=== PATIENT | male | born 1955 | race Caucasian/White ===

== ENCOUNTER → 2018-01-17 14:07 | Outpatient (CLI) | payer OTHER, SELFPAY ==
--- NOTE | 2018-01-17 14:11 | DI.RAD.S_ITS ---
PROCEDURE: XR SHOULDER RT MIN 2V INDICATIONS: right shoulder pain TECHNIQUE: 3 views of the shoulder were acquired. COMPARISON: None. FINDINGS: Bones: No fractures or dislocations. No suspicious bony lesions. Visualized ribs appear intact. There is moderate to severe acromioclavicular joint degeneration. Lucency seen humeral head are seen. Soft tissues: No suspicious soft tissue calcifications. IMPRESSION: 1. Moderate acromioclavicular joint degeneration. 2. Small lucencies in the humeral head may be bone cysts. If there is history or clinical concern of cancer, a whole-body bone scan is suggested for followup. Dictated by: Brayan Robledo M.D. on 01/17/2018 at 17:24 Approved by: Brayan Robledo M.D. on 01/18/2018 at 9:50
== END ==
PROVIDERS: PCP Family Medicine; Visit Provider Family Medicine
DX: M25.511 Pain in right shoulder (principal); M19.011 Primary osteoarthritis, right shoulder
CPT/HCPCS: 73030

== ENCOUNTER → 2019-05-05 08:46 | Outpatient (CLI) | payer OTHER, SELFPAY ==
[2019-05-05 10:31] LABS: Add Manual Diff / Slide Review NO; Basophils Absolute Auto 0 /uL (0-100); Basophils Percent Auto 0.5 % (0-2); Eosinophils Absolute Auto 200 /uL (0-450); Eosinophils Percent Auto 2.3 % (2-4); Hematocrit 46.8 % (41-53); Hemoglobin 15.9 g/dL (13.5-17.5); Lymphocytes Absolute Auto 2700 /uL (1100-4500); Lymphocytes Percent Auto 38.7 % (25-40); Mean Corpuscular HGB Conc 33.9 % (30-36); Mean Corpuscular Hemoglobin 30.9 PG (26-34); Monocytes Absolute Auto 500 /uL (0-900); Monocytes Percent Auto 7.3 % (3-14); Neutrophils Absolute Auto 3600 /uL (1500-7000); Neutrophils Percent Auto 51.2 % (50-75); Platelet Count 175 X10^3/uL (150-400); Red Blood Cell Count 5.14 X10^6/uL (4.5-5.9); Red Cell Distribution Width 13.1 % (11.6-14.8)
[2019-05-05 10:39] LABS: Blood Urea Nitrogen 23 mg/dL (9-20)
== END ==
PROVIDERS: PCP Family Medicine; Visit Provider Orthopaedic Surgery
DX: Z01.812 Encounter for preprocedural laboratory examination (principal); R79.89 Other specified abnormal findings of blood chemistry
CPT/HCPCS: 36415; 84520; 85025; 93005

== ENCOUNTER → 2019-10-06 16:54 | Outpatient (CLI) | payer OTHER, SELFPAY ==
--- NOTE | 2019-10-06 16:57 | DI.US.S_ITS ---
PROCEDURE: US SCROTUM INDICATIONS: TESTICULAR PAIN TECHNIQUE: Real-time scanning was performed of the scrotum and testicles, with image documentation. Color and pulse Doppler interrogation was performed of both testicles. COMPARISON: None. FINDINGS: Right: Testicle is normal in size at 4.5 x 2.5 x 2.9 cm, and homogenous in echotexture. Epididymis is normal in overall size. A 1.8 cm right epididymal cyst can be seen. There is a small to moderate right-sided hydrocele. Overlying scrotal skin is normal in thickness. Left: Testicle is normal in size at 4.1 x 2.4 x 3.1 cm, and homogeneous in echotexture. Epididymis is normal in overall size and morphology. There is a small left-sided hydrocele. Overlying scrotal skin is normal in thickness. Doppler: Color and pulse Doppler demonstrate normal and symmetric arterial flow in both testicles. No varicoceles are seen. IMPRESSION: Normal appearing testicles, without masses. There is normal, symmetric testicular vascularity. There is a 1.8 cm right epididymal cyst seen. Bilateral hydroceles are seen, right worse than left. Negative for varicocele. Dictated by: Janak Mc M.D. on 10/07/2019 at 9:54 Approved by: Janak Mc M.D. on 10/07/2019 at 9:56
== END ==
PROVIDERS: PCP Family Medicine; Referring Provider Family Medicine; Visit Provider Family Medicine
DX: N50.819 Testicular pain, unspecified (principal); N50.3 Cyst of epididymis; N43.3 Hydrocele, unspecified
CPT/HCPCS: 76870

== ENCOUNTER → 2020-01-22 08:38 | Outpatient (CLI) | payer OTHER, SELFPAY ==
[2020-01-22 09:43] LABS: Add Manual Diff / Slide Review NO; Basophils Absolute Auto 0 /uL (0-100); Basophils Percent Auto 0.6 % (0-2); Eosinophils Absolute Auto 100 /uL (0-450); Eosinophils Percent Auto 1.8 % (2-4); Hematocrit 43.1 % (41-53); Hemoglobin 14.5 g/dL (13.5-17.5); Lymphocytes Absolute Auto 2000 /uL (1100-4500); Lymphocytes Percent Auto 32.6 % (25-40); Mean Corpuscular HGB Conc 33.7 % (30-36); Mean Corpuscular Hemoglobin 29.9 PG (26-34); Mean Corpuscular Volume 88.9 fL (80-100); Monocytes Absolute Auto 400 /uL (0-900); Monocytes Percent Auto 5.9 % (3-14); Neutrophils Absolute Auto 3600 /uL (1500-7000); Neutrophils Percent Auto 59.1 % (50-75); Platelet Count 168 X10^3/uL (150-400); Red Blood Cell Count 4.85 X10^6/uL (4.5-5.9); Red Cell Distribution Width 13.6 % (11.6-14.8); White Blood Cell Count 6.1 X10^3/uL (4.5-11.0)
[2020-01-22 09:53] LABS: Hemoglobin A1C% w Est Avg Glu 9.4 % (4.0-6.0)
[2020-01-22 10:14] LABS: Alanine Aminotransferase 35 IU/L (<50); Albumin 4.2 g/dL (3.5-5.0); Albumin Globulin Ratio 1.7 (1.0-2.8); Alkaline Phosphatase 53 U/L (38-126); Aspartate Aminotransferase 30 IU/L (17-59); BUN Creatinine Ratio 25.5 (6-22); Bilirubin Total 0.6 mg/dL (0.2-1.3); Blood Urea Nitrogen 26 mg/dL (9-20); Calcium 9.7 mg/dL (8.4-10.2); Carbon Dioxide 26 mmol/L (22-32); Chloride 103 mmol/L (98-107); Cholesterol 132 mg/dL (140-199); Estimated Glomerular Filt Rate > 60.0 mL/min (>60); Globulin 2.5 g/dL (1.7-4.1); Glucose 241 mg/dL (80-110); HDL Cholesterol 20 mg/dL (40-60); Potassium 4.9 mmol/L (3.4-5.1); Sodium 139 mmol/L (137-145); Total Protein 6.7 g/dL (6.3-8.2)
[2020-01-22 10:21] LABS: HEMOLYSIS < 15 (0-50)
[2020-01-22 10:24] LABS: Triglycerides 642 mg/dL (35-150)
[2020-01-22 10:50] LABS: Thyroid Stimulating Hormone 1.85 uIU/mL (0.47-4.68)
[2020-01-22 10:56] LABS: Creatinine Urine Random 250.2 mg/dL
[2020-01-22 11:00] LABS: Microalbumi Creatinin Ratio Ur 8.3 ug/mg CR (<30); Microalbumin Urine Random 2.1 mg/dL (0-1.6)
== END ==
PROVIDERS: PCP Family Medicine; Referring Provider Family Medicine; Visit Provider Family Medicine
DX: E11.9 Type 2 diabetes mellitus without complications (principal)
CPT/HCPCS: 36415; 80053; 80061; 82043; 82570; 83036; 84153; 84443; 85025

== ENCOUNTER → 2020-03-26 06:51 | Outpatient (CLI) | payer OTHER, SELFPAY ==
[2020-03-26 07:42] LABS: BUN Creatinine Ratio 27.4 (6-22); Blood Urea Nitrogen 29 mg/dL (9-20); Calcium 9.9 mg/dL (8.4-10.2); Carbon Dioxide 28 mmol/L (22-32); Chloride 102 mmol/L (98-107); Estimated Glomerular Filt Rate > 60.0 mL/min (>60); Glucose 214 mg/dL (80-110); HEMOLYSIS < 15 (0-50); Potassium 4.7 mmol/L (3.4-5.1); Sodium 137 mmol/L (137-145)
== END ==
PROVIDERS: PCP Family Medicine; Referring Provider Family Medicine; Visit Provider Family Medicine
DX: E11.9 Type 2 diabetes mellitus without complications (principal)
CPT/HCPCS: 36415; 80048; 83036

== ENCOUNTER → 2022-03-01 09:20 | Outpatient (CLI) | payer MEDICARE, OTHER, SELFPAY ==
[2022-03-01 09:49] LABS: Add Manual Diff / Slide Review NO; Basophils Absolute Auto 0 /uL (0-100); Basophils Percent Auto 0.6 % (0-2); Eosinophils Absolute Auto 100 /uL (0-450); Hematocrit 44.7 % (41-53); Hemoglobin 15.2 g/dL (13.5-17.5); Lymphocytes Absolute Auto 2400 /uL (1100-4500); Lymphocytes Percent Auto 36.6 % (25-40); Mean Corpuscular HGB Conc 34.1 % (30-36); Mean Corpuscular Hemoglobin 29.9 PG (26-34); Mean Corpuscular Volume 87.9 fL (80-100); Monocytes Absolute Auto 500 /uL (0-900); Neutrophils Absolute Auto 3600 /uL (1500-7000); Neutrophils Percent Auto 53.8 % (50-75); Platelet Count 152 X10^3/uL (150-400); Red Blood Cell Count 5.08 X10^6/uL (4.5-5.9); Red Cell Distribution Width 13.9 % (11.6-14.8); White Blood Cell Count 6.6 X10^3/uL (4.5-11.0)
[2022-03-01 09:51] LABS: Hemoglobin A1C% w Est Avg Glu 6.8 % (4.0-6.0)
[2022-03-01 09:59] LABS: Alanine Aminotransferase 38 IU/L (<50); Albumin 4.7 g/dL (3.5-5.0); Albumin Globulin Ratio 1.6 (1.0-2.8); Alkaline Phosphatase 39 U/L (38-126); Aspartate Aminotransferase 32 IU/L (17-59); BUN Creatinine Ratio 25.2 (6-22); Bilirubin Total 0.5 mg/dL (0.2-1.3); Blood Urea Nitrogen 34 mg/dL (9-20); Calcium 9.5 mg/dL (8.4-10.2); Carbon Dioxide 24 mmol/L (22-32); Chloride 105 mmol/L (98-107); Cholesterol 164 mg/dL (140-199); Estimated Glomerular Filt Rate 58 mL/min (>60); Globulin 2.9 g/dL (1.7-4.1); Glucose 133 mg/dL (80-110); HDL Cholesterol 30 mg/dL (40-60); HEMOLYSIS < 15 (0-50); LDL Cholesterol Calculated 100 mg/dL (<100); Potassium 5.1 mmol/L (3.4-5.1); Sodium 140 mmol/L (137-145); Total Protein 7.6 g/dL (6.3-8.2); Triglycerides 171 mg/dL (35-150)
[2022-03-01 10:28] LABS: Prostate Specific Antigen Scrn 2.13 ng/mL (0.1-4.0)
[2022-03-01 10:52] LABS: Creatinine Urine Random 186.3 mg/dL
[2022-03-01 10:57] LABS: Microalbumi Creatinin Ratio Ur 6.4 ug/mg CR (<30); Microalbumin Urine Random 1.2 mg/dL (0-1.6)
[2022-03-02 16:34] LABS: Hep C Virus Ab w/Reflex Quant NEGATIVE s/c (NEGATIVE)
== END ==
PROVIDERS: PCP Student in an Organized Health Care Education/Training Program; Referring Provider Student in an Organized Health Care Education/Training Program; Visit Provider Student in an Organized Health Care Education/Training Program
DX: E11.69 Type 2 diabetes mellitus with other specified complication (principal); E66.01 Morbid (severe) obesity due to excess calories; Z12.5 Encounter for screening for malignant neoplasm of prostate; E11.9 Type 2 diabetes mellitus without complications; E78.1 Pure hyperglyceridemia; E78.5 Hyperlipidemia, unspecified; I10 Essential (primary) hypertension; Z11.59 Encounter for screening for other viral diseases
CPT/HCPCS: 36415; 80053; 80061; 82043; 82570; 83036; 85025; 86803; G0103

== ENCOUNTER → 2022-03-09 11:38 | Outpatient (CLI) | payer MEDICARE, OTHER, SELFPAY ==
--- NOTE | 2022-03-09 | DI.CT.S_ITS ---
PROCEDURE: CT CHEST WO CON INDICATIONS: Nicotine dependence; AAA screening TECHNIQUE: Noncontrast 5 mm thick sections acquired from the pulmonary apices to the posterior costophrenic angles. 1 mm lung window, 5 mm thick coronal and sagittal and 7 mm axial MIP reformats were then acquired. For radiation dose reduction, the following was used: automated exposure control, adjustment of mA and/or kV according to patient size. COMPARISON: None. FINDINGS: Image quality: Excellent. Lungs and pleura: 4 mm perihilar solid nodule in the right lower lobe, 3/166. No other suspicious lung nodules or masses. No acute air space opacities. No pleural effusions or pneumothorax. Central and peripheral airways are patent and normal in caliber. Mediastinum: Heart size is normal. Mild coronary artery calcification. No pericardial effusion. No mediastinal adenopathy by size criteria. Thoracic aorta and central pulmonary arteries are normal in size. Esophagus is normal in caliber. No hiatal hernia. Bones and chest wall: Mild gynecomastia. No suspicious bony lesions. Bridging osteophytosis in the midthoracic spine. No vertebral body compression fractures. No axillary or supraclavicular adenopathy by size criteria. Thyroid gland is partially imaged in the imaged portion appears normal. . Abdomen: The gallbladder is surgically absent. The liver is mildly enlarged and moderately hypodense. Upper abdominal organs are otherwise normal as visualized. IMPRESSION: 1. No suspicious lung nodules. 4 mm solid nodule in the perihilar region is probably benign. Recommend annual low-dose chest CT screening of the patient meets established criteria. 2. Hepatomegaly and moderate hepatic steatosis. Dictated by: Marian Flower M.D. on 03/09/2022 at 16:00 Approved by: Marian Flower M.D. on 03/09/2022 at 16:05
--- NOTE | 2022-03-09 | DI.US.S_ITS ---
PROCEDURE: US ABD AORTA ANEURYSM SCREEN INDICATIONS: Nicotine dependence; AAA screening TECHNIQUE: Real time scanning was performed of the aorta and iliac arteries, with image documentation. COMPARISON: None. FINDINGS: Aorta: The proximal aorta is not seen. Mid-aorta measures 2 cm. Distal aortic diameter is 1.6 cm. Iliac arteries: Right common iliac artery measures 1.3 cm. Left common iliac artery measures 1.2 cm. This study is limited by body habitus. This study is further limited by abdominal wall mesh. IMPRESSION: Negative for aneurysm. Limited study, without visualization of the proximal aorta. Dictated by: Janak Mc M.D. on 03/09/2022 at 13:04 Approved by: Janak Mc M.D. on 03/09/2022 at 13:05
== END ==
PROVIDERS: PCP Student in an Organized Health Care Education/Training Program; Referring Provider Student in an Organized Health Care Education/Training Program; Visit Provider Student in an Organized Health Care Education/Training Program
DX: R91.1 Solitary pulmonary nodule; Z13.6 Encounter for screening for cardiovascular disorders; I25.10 Atherosclerotic heart disease of native coronary artery without angina pectoris; K76.0 Fatty (change of) liver, not elsewhere classified; N62 Hypertrophy of breast; F17.200 Nicotine dependence, unspecified, uncomplicated; Z90.49 Acquired absence of other specified parts of digestive tract
CPT/HCPCS: 71250; 76706

== ENCOUNTER 2022-07-12 18:49 | Emergency (ER) | payer MEDICARE, OTHER, SELFPAY ==
[2022-07-12 19:06] VITALS: BP 180/88; PULSE 62; RESP 20; TEMP 36.6; O2SAT 98; BMI 36.2
--- NOTE | 2022-07-12 19:20 | DI.CT.S_ITS ---
PROCEDURE: CT HEAD/BRAIN WO CON INDICATIONS: headache and HTN TECHNIQUE: Noncontrast 4.5 mm thick angled axial sections acquired from the foramen magnum to the vertex, with coronal and sagittal reformats. For radiation dose reduction, the following was used: automated exposure control, adjustment of mA and/or kV according to patient size. COMPARISON: None. FINDINGS: Image quality: Excellent. CSF spaces: Basal cisterns are patent. No extra-axial fluid collections. Ventricles are normal in size and shape. Brain: No midline shift. No intracranial masses or hemorrhage. Vaughan-white matter interface is normal. Skull and face: Calvarium and visualized facial bones are intact, without suspicious lesions. Sinuses: Visualized sinuses and mastoids are clear. IMPRESSION: 1. No acute intracranial process. Dictated by: Ana Raymond M.D. on 07/12/2022 at 19:43 Approved by: Ana Raymond M.D. on 07/12/2022 at 19:43
[2022-07-12 19:47] LABS: Add Manual Diff / Slide Review NO; Basophils Absolute Auto 100 /uL (0-100); Eosinophils Absolute Auto 100 /uL (0-450); Eosinophils Percent Auto 1.8 % (2-4); Hematocrit 43.1 % (41-53); Hemoglobin 14.7 g/dL (13.5-17.5); Lymphocytes Absolute Auto 3100 /uL (1100-4500); Lymphocytes Percent Auto 40.1 % (25-40); Mean Corpuscular HGB Conc 34.2 % (30-36); Mean Corpuscular Hemoglobin 30.3 PG (26-34); Mean Corpuscular Volume 88.8 fL (80-100); Monocytes Absolute Auto 500 /uL (0-900); Monocytes Percent Auto 6.3 % (3-14); Neutrophils Absolute Auto 3900 /uL (1500-7000); Neutrophils Percent Auto 50.8 % (50-75); Platelet Count 161 X10^3/uL (150-400); Red Blood Cell Count 4.85 X10^6/uL (4.5-5.9); Red Cell Distribution Width 13.8 % (11.6-14.8); White Blood Cell Count 7.7 X10^3/uL (4.5-11.0)
[2022-07-12 19:52] LABS: Alanine Aminotransferase 43 IU/L (<50); Albumin 4.5 g/dL (3.5-5.0); Albumin Globulin Ratio 1.7 (1.0-2.8); Alkaline Phosphatase 42 U/L (38-126); Aspartate Aminotransferase 33 IU/L (17-59); Bilirubin Total 0.5 mg/dL (0.2-1.3); Blood Urea Nitrogen 32 mg/dL (9-20); Calcium 9.3 mg/dL (8.4-10.2); Carbon Dioxide 25 mmol/L (22-32); Chloride 102 mmol/L (98-107); Creatine Kinase 186 U/L (55-170); Estimated Glomerular Filt Rate 56 mL/min (>60); Globulin 2.6 g/dL (1.7-4.1); Glucose 102 mg/dL (80-110); HEMOLYSIS < 15 (0-50); Lipase 111 U/L (23-300); Potassium 4.5 mmol/L (3.4-5.1); Sodium 137 mmol/L (137-145); Total Protein 7.1 g/dL (6.3-8.2)
[2022-07-12 19:55] VITALS: BP 152/78; RESP 18
[2022-07-12] MEDS: ACETAMINOPHEN 325 MG TABLET 975 MG PO (20:01)
[2022-07-12 20:02] VITALS: BP 147/88
[2022-07-12 20:02] LABS: Troponin I < 0.012 ng/mL (0.01-0.034)
[2022-07-12 20:07] LABS: CKMB % Relative Index 1.2 % (1.5-5.0); Creatine Kinase MB 2.29 ng/mL (<2.37)
[2022-07-12 20:30] VITALS: PULSE 69; O2SAT 98
[2022-07-12 20:31] VITALS: BP 151/79; PULSE 64; O2SAT 96
--- NOTE | 2022-07-12 20:53 | ED_ITS ---
HPI - Headache General Chief Complaint: Headache Stated Complaint: double vision, head feels like it will explode Time Seen by Provider: 07/12/22 20:37 Source: patient Mode of arrival: Ambulatory Limitations: no limitations History of Present Illness HPI Narrative: Patient is a 66-year-old male. Is a xvs-saboaoq-bathgirqa diabetic. Not on anticoagulation. Does have a history of hypertension was here for evaluation approximately 3 days of a headache. It was a fairly gradual onset of the headache 3 days ago but has been consistent since then gradually worsening. He states that earlier today the headache became much worse. He started to have some double vision and felt like he was off-balance. He was not having chest pain or palpitations no shortness of breath at the time. No numbness or tingling in his arms or legs. He stated that he did take his blood pressure today. He stated that this felt very similar to the time when he was diagnosed with diabetes but he took his blood sugar and it was less than 150. At the time of my evaluation the patient stated that his symptoms have now greatly improved. He does still have a small posterior headache but is no longer having any vision problems or balance issues. Blood pressure has improved without specific intervention here in the ER prior to my evaluation. Related Data Home Medications Medication Instructions Recorded Confirmed nortriptyline 50 mg capsule 50 mg PO BEDTIME 03/01/22 03/01/22 Previous Rx's Medication Instructions Recorded fenofibrate 160 mg tablet 160 mg PO DAILY #90 tabs 03/06/22 glyburide 5 mg tablet 5 mg PO BID #180 tabs 03/06/22 meloxicam 7.5 mg tablet 7.5 mg PO BID #180 tabs 03/06/22 lisinopril 20 mg tablet 20 mg PO BID #180 tabs 05/04/22 metformin 1,000 mg tablet 1,000 mg PO BIDWMEAL #180 tabs 05/04/22 metoprolol tartrate 100 mg tablet 100 mg PO BID #180 tabs 05/04/22 pioglitazone 30 mg tablet 30 mg PO DAILY #90 tabs 05/04/22 Allergies Allergy/AdvReac Type Severity Reaction Status Date / Time No Known Drug Allergies Allergy Verified 03/01/22 08:46 Review of Systems Review of Systems ROS Unobtainable: All systems reviewed & are unremarkable except as noted in HPI and below Patient History Medical History Colon polyp (~1999) Diabetes mellitus Hearing loss (~2011) Hydrocele, bilateral Kidney stones Shoulder pain (~2014) Surgical History (Updated 10/16/17 @ 11:01 by Maria C Romero) Anesthesia Hernia History of cholecystectomy History of neck surgery Family History (Updated 10/16/17 @ 10:56 by Maria C Romero) Father Stroke Mother Cancer Brother Colon cancer Social History Smoking Status: Current every day smoker Smoking Status: Current every day smoker tobacco type: cigarettes alcohol intake frequency: holidays/special occasions only Substance Use Type: marijuana Exam Initial Vital Signs Initial Vital Signs: Vital Signs Temperature 98 F 07/12/22 19:06 Pulse Rate 62 07/12/22 19:06 Respiratory Rate 20 07/12/22 19:06 Blood Pressure 180/88 H 07/12/22 19:06 Pulse Oximetry 98 07/12/22 19:06 Oxygen Delivery Method Room Air 07/12/22 19:06 Const General: cooperative, comfortable and No ill appearing HENMT Head: normal to inspection and normocephalic Face and sinus: normal facial exam Mouth: oral mucosae normal Eyes EOM: EOM intact bilaterally Resp Effort & Inspection: normal respiratory effort Auscultation: clear to auscultation bilaterally Cardio Rate: regular rate Rhythm: regular rhythm Skin General: no rashes or lesions noted Neuro General: patient alert, patient awake and moves all extremities Cranial Nerves: CN's II-XI intact bilaterally Cognition: normal cognition Speech: speech normal Extrem General: normal to inspection and capillary refill normal Psych Appearance: grossly normal and well kempt Scores GCS P[place]lette coma scale eye opening: Spontaneous [place] coma scale verbal response: Orientated [place] coma scale motor response: Obey commands P[place]lette coma scale total score: 15 Course Orders Ordered: ED Orders 07/12/22 19:20 CT head/brain wo con Stat EKG-12 Lead Stat 07/12/22 19:25 Complete Blood Count AUTO DIFF Stat Comprehensive Metabolic Panel Stat Lipase Stat Troponin & CK Cardiac Panel Stat Discontinued Medications Acetaminophen (Acetaminophen 325 Mg Tablet) 975 mg PO NOW ONE Stop: 07/12/22 19:13 Last Admin: 07/12/22 20:01 Dose: 975 mg Documented By: DAYAMI Ketorolac Tromethamine (Ketorolac 30 Mg/Ml Vial) 15 mg IM NOW ONE Stop: 07/12/22 19:13 Last Admin: 07/12/22 20:12 Dose: Not Given Documented By: AMARILYS Ondansetron HCl (Ondansetron 4 Mg Odt) 4 mg SL NOW ONE Stop: 07/12/22 19:13 Last Admin: 07/12/22 20:12 Dose: Not Given Documented By: AMARILYS Vital Signs Vital signs: Vital Signs - 8 hr 07/12/22 19:55 07/12/22 20:02 07/12/22 20:30 Pulse Rate 69 Respiratory Rate 18 Blood Pressure 152/78 H 147/88 H Pulse Oximetry 98 Oxygen Delivery Method 07/12/22 20:31 07/12/22 20:31 07/12/22 21:03 Pulse Rate 64 57 L Respiratory Rate Blood Pressure 151/79 H 151/79 H Pulse Oximetry 96 96 Oxygen Delivery Method Room Air MDM - Headache Lab Data Attestation: I reviewed the patient's lab results. 07/12/22 19:25 07/12/22 19:25 Labs: Lab Results 07/12/22 07/12/22 Range/Units 19:25 19:25 WBC 7.7 (4.5-11.0) X10^3/uL RBC 4.85 (4.5-5.9) X10^6/uL Hgb 14.7 (13.5-17.5) g/dL Hct 43.1 (41-53) % MCV 88.8 (80-100) fL MCH 30.3 (26-34) PG MCHC 34.2 (30-36) % RDW 13.8 (11.6-14.8) % Plt Count 161 (150-400) X10^3/uL Neut % (Auto) 50.8 (50-75) % Lymph % (Auto) 40.1 H (25-40) % [place] % (Auto) 6.3 (3-14) % Eos % (Auto) 1.8 L (2-4) % Baso % (Auto) 1.0 (0-2) % Neut # (Auto) 3900 (8260-9808) /uL Lymph # (Auto) 3100 (6675-7557) /uL [place] # (Auto) 500 (0-900) /uL Eos # (Auto) 100 (0-450) /uL Baso # (Auto) 100 (0-100) /uL Sodium 137 (137-145) mmol/L Potassium 4.5 (3.4-5.1) mmol/L Chloride 102 (98-107) mmol/L Carbon Dioxide 25 (22-32) mmol/L BUN 32 H (9-20) mg/dL Creatinine 1.39 H (0.66-1.25) mg/dL Estimated GFR 56 L (>60) mL/min BUN/Creatinine Ratio 23.0 H (6-22) Glucose 102 (80-110) mg/dL Calcium 9.3 (8.4-10.2) mg/dL Total Bilirubin 0.5 (0.2-1.3) mg/dL AST 33 (17-59) IU/L ALT 43 (<50) IU/L Alkaline Phosphatase 42 (38-126) U/L Total Creatine Kinase 186 H (55-170) U/L CK-MB (CK-2) 2.29 (<2.37) ng/mL CK-MB (CK-2) Rel Index 1.2 L (1.5-5.0) % Troponin I < 0.012 (0.01-0.034) ng/mL Total Protein 7.1 (6.3-8.2) g/dL Albumin 4.5 (3.5-5.0) g/dL Globulin 2.6 (1.7-4.1) g/dL Albumin/Globulin Ratio 1.7 (1.0-2.8) Lipase 111 (23-300) U/L Imaging Data CT scan - head: Radiologist's Impression: PROCEDURE:? CT HEAD/BRAIN WO CON ? INDICATIONS:? headache and HTN ? TECHNIQUE:? Noncontrast 4.5 mm thick angled axial sections acquired from the foramen magnum to the vertex, with coronal and sagittal reformats.? For radiation dose reduction, the following was used:? automated exposure control, adjustment of mA and/or kV according to patient size.? ? COMPARISON:? None. ? FINDINGS:? Image quality:? Excellent.? ? CSF spaces:? Basal cisterns are patent.? No extra-axial fluid collections.? Ventricles are normal in size and shape.? ? Brain:? No midline shift.? No intracranial masses or hemorrhage.? Vaughan-white matter interface is normal.? ? Skull and face:? Calvarium and visualized facial bones are intact, without suspicious lesions.? ? Sinuses:? Visualized sinuses and mastoids are clear.? ? IMPRESSION:? ? 1. No acute intracranial process. ECG Data Attestation: I personally reviewed and interpreted this ECG as follows: Interpretation: Sinus bradycardia Ventricular rate of 55 Left axis deviation Normal QRS Normal QTC No ST T wave changes MDM Narrative Medical decision making narrative: At the time of my evaluation the patient admitted that his symptoms have greatly improved. He was still having very slight posterior headache but the vision balance issues are now resolved. His blood pressure has improved. His head CT is unremarkable. EKG is unremarkable. Labs are unremarkable. Considered CVA, TIA, anterior cranial hemorrhage, intracranial thrombosis, hypertensive urgency, hypertensive emergency, ACS, palpitations, and others. Based on his workup and his exam today I have low suspicion for all of the above diagnoses accept I have a higher concern that his headache maybe related to an elevation in his blood pressure. He does not necessarily routinely take his blood pressure at home. Unsure what his baseline is given his history of hypertension. He states he is taking all of his medications. Plan will be is for him to take his blood pressure at home and record the values and contact his primary doctor to discuss these values to see whether not there should be any changes to his medications patient is safe for discharge home. He was given return precautions. He e xpressed understanding and agreement. Discharge Plan Departure Patient Disposition: Home Clinical Impression: Headache, Hypertension Instructions: DI for Headache Activity Restrictions/Additional Instructions: I do recommend that you continue to take all of your medications as directed and take your blood pressure at home like we discussed. Contact your primary doctor for a follow-up. Return to the emergency department for any new or worsening symptoms. Prescriptions: No Action glyburide 5 mg tablet 5 mg PO BID Qty: 180 1RF fenofibrate 160 mg tablet 160 mg PO DAILY Qty: 90 3RF meloxicam 7.5 mg tablet 7.5 mg PO BID Qty: 180 1RF lisinopril 20 mg tablet 20 mg PO BID Qty: 180 3RF metformin 1,000 mg tablet 1,000 mg PO BIDWMEAL Qty: 180 0RF metoprolol tartrate 100 mg tablet 100 mg PO BID Qty: 180 3RF pioglitazone 30 mg tablet 30 mg PO DAILY Qty: 90 0RF nortriptyline 50 mg capsule 50 mg PO BEDTIME Referrals: Chase Rivera MD [Primary Care Provider] - Stand Alone Forms: Patient Portal/API
[2022-07-12 21:03] VITALS: BP 151/79; PULSE 57; O2SAT 96
== END 2022-07-12 21:04 | disposition home or self-care (01) ==
PROVIDERS: Emergency Provider Emergency Medicine; PCP Student in an Organized Health Care Education/Training Program
DX: I11.0 Hypertensive heart disease with heart failure (principal); R51.9 Headache, unspecified; H53.2 Diplopia; R00.1 Bradycardia, unspecified
CPT/HCPCS: 36415; 70450; 80053; 82550; 82553; 83690; 84484; 85025; 93005; 99283; 99284

== ENCOUNTER → 2022-09-12 08:29 | Outpatient (CLI) | payer MEDICARE, OTHER, SELFPAY ==
[2022-09-12 10:41] LABS: BUN Creatinine Ratio 21.8 (6-22); Blood Urea Nitrogen 26 mg/dL (9-20); Calcium 9.4 mg/dL (8.4-10.2); Carbon Dioxide 25 mmol/L (22-32); Chloride 108 mmol/L (98-107); Estimated Glomerular Filt Rate > 60 mL/min (>60); Glucose 54 mg/dL (80-110); HEMOLYSIS < 15 (0-50); Potassium 4.6 mmol/L (3.4-5.1); Sodium 141 mmol/L (137-145)
[2022-09-12 23:23] LABS: x Labcorp Estim. Avg Glu (eAG) 148 mg/dL (.); x Labcorp Hemoglobin A1c 6.8 % (4.8-5.6)
[2022-09-15 03:10] LABS: Cystatin C 1.02 mg/L (0.72-1.16)
== END ==
PROVIDERS: PCP Student in an Organized Health Care Education/Training Program; Referring Provider Student in an Organized Health Care Education/Training Program; Visit Provider Student in an Organized Health Care Education/Training Program
DX: E11.9 Type 2 diabetes mellitus without complications (principal)
CPT/HCPCS: 36415; 80048; 82610; 83036

== ENCOUNTER → 2023-04-02 09:54 | Outpatient (CLI) | payer MEDICARE, OTHER, SELFPAY ==
[2023-04-02 10:51] LABS: Hemoglobin A1C% w Est Avg Glu 6.9 % (4.0-6.0)
[2023-04-02 11:01] LABS: Aspartate Aminotransferase 33 IU/L (17-59); BUN Creatinine Ratio 27.6 (6-22); Blood Urea Nitrogen 29 mg/dL (9-20); Calcium 10.1 mg/dL (8.4-10.2); Carbon Dioxide 26 mmol/L (22-32); Chloride 106 mmol/L (98-107); Cholesterol 173 mg/dL (140-199); Estimated Glomerular Filt Rate > 60 mL/min (>60); Glucose 108 mg/dL (80-110); HDL Cholesterol 33 mg/dL (40-60); HEMOLYSIS < 15 (0-50); LDL Cholesterol Calculated 106 mg/dL (<100); Sodium 137 mmol/L (137-145); Triglycerides 170 mg/dL (35-150)
[2023-04-02 15:51] LABS: Creatinine Urine Random 112.8 mg/dL
[2023-04-02 16:04] LABS: Microalbumin Urine Random < 0.6 mg/dL (0-1.6)
== END ==
PROVIDERS: PCP Internal Medicine; Referring Provider Internal Medicine; Visit Provider Internal Medicine
DX: E11.69 Type 2 diabetes mellitus with other specified complication (principal); E78.5 Hyperlipidemia, unspecified; E78.1 Pure hyperglyceridemia; I10 Essential (primary) hypertension
CPT/HCPCS: 36415; 80048; 80061; 82043; 82570; 83036; 84450

== ENCOUNTER → 2023-09-24 09:16 | Outpatient (CLI) | payer MEDICARE, OTHER, SELFPAY ==
[2023-09-24 10:28] LABS: Hemoglobin A1C% w Est Avg Glu 6.7 % (4.0-6.0)
[2023-09-24 10:41] LABS: BUN Creatinine Ratio 26.2 (6-22); Blood Urea Nitrogen 28 mg/dL (9-20); Calcium 9.6 mg/dL (8.4-10.2); Carbon Dioxide 27 mmol/L (22-32); Chloride 107 mmol/L (98-107); Estimated Glomerular Filt Rate > 60 mL/min (>60); Glucose 135 mg/dL (80-110); HEMOLYSIS < 15 (0-50); Sodium 141 mmol/L (137-145)
[2023-09-24 11:14] LABS: Testosterone 350 ng/dL (71.8-623)
== END ==
LOC: LAB 09:18
PROVIDERS: PCP Internal Medicine; Referring Provider Internal Medicine; Visit Provider Internal Medicine
DX: R79.89 Other specified abnormal findings of blood chemistry (principal); E11.69 Type 2 diabetes mellitus with other specified complication; E78.5 Hyperlipidemia, unspecified
CPT/HCPCS: 36415; 80048; 83036; 84403

== ENCOUNTER → 2023-09-25 14:03 | Outpatient (CLI) | payer MEDICARE, OTHER, SELFPAY ==
--- NOTE | 2023-09-25 14:04 | DI.CT.S_ITS ---
PROCEDURE: CT LUNG LOW DOSE SCREENING INDICATIONS: tobacco use TECHNIQUE: Noncontrast 2.0-2.5 mm thick sections acquired from the pulmonary apices to the posterior costophrenic angles. 7 mm thick axial MIP, and 5 mm coronal and sagittal reformats were then acquired. For radiation dose reduction, the following was used: automated exposure control, adjustment of mA and/or kV according to patient size. COMPARISON: CT chest dated 03/09/2022. FINDINGS: Image quality: Diagnostic. Lower Neck: No enlarged lymph nodes. Thyroid: No thyroid nodules which require sonographic follow up, per consensus guidelines. Axillae: No enlarged lymph nodes. Chest Wall: Unremarkable. Bones: No suspicious bony lesions. No vertebral body compression fracture. Lungs and Pleura: 3 mm solid nodule in right perihilar space series 3, image 150 previously measures 4 mm in size. No new pulmonary nodule is seen. No pneumothorax or pleural effusions. No consolidation or suspicious nodules. Heart: Heart size is normal. No pericardial effusion. Thoracic Vessels: The aorta and pulmonary arteries demonstrate normal size. Single vessel coronary artery calcification is seen. Mediastinum and Deborah: No enlarged lymph nodes. Esophagus: No wall thickening. No hiatal hernia. Upper Abdomen: Visualized upper abdomen solid organs and bowel loops appear normal. Gallbladder is surgically absent. IMPRESSION: 1. No suspicious pulmonary nodules. 3 mm right perihilar space nodule previously measures 4 mm in size. LUNG-RADS 2, continued annual screening, if eligible. Clinically Significant Non-pulmonary Findings: Single-vessel coronary artery atherosclerotic calcifications. Dictated by: Deshaun Simms M.D. on 09/26/2023 at 9:20 Approved by: Deshaun Simms M.D. on 09/26/2023 at 9:24
== END ==
PROVIDERS: PCP Internal Medicine; Referring Provider Internal Medicine; Visit Provider Internal Medicine
DX: F17.210 Nicotine dependence, cigarettes, uncomplicated (principal); R91.1 Solitary pulmonary nodule; Z12.2 Encounter for screening for malignant neoplasm of respiratory organs; I25.10 Atherosclerotic heart disease of native coronary artery without angina pectoris
CPT/HCPCS: 71271

== ENCOUNTER → 2023-10-02 07:53 | Outpatient (CLI) | payer MEDICARE, OTHER, SELFPAY ==
[2023-10-02 10:12] LABS: Cholesterol 164 mg/dL (140-199); HDL Cholesterol 34 mg/dL (40-60); LDL Cholesterol Calculated 79 mg/dL (<100); Triglycerides 256 mg/dL (35-150)
[2023-10-02 10:40] LABS: Prostate Specific Antigen 4.44 ng/mL (0.10-4.00)
== END ==
PROVIDERS: PCP Internal Medicine; Referring Provider Internal Medicine; Visit Provider Internal Medicine
DX: E11.69 Type 2 diabetes mellitus with other specified complication (principal); N40.1 Benign prostatic hyperplasia with lower urinary tract symptoms; E78.5 Hyperlipidemia, unspecified; I25.10 Atherosclerotic heart disease of native coronary artery without angina pectoris; N39.42 Incontinence without sensory awareness
CPT/HCPCS: 36415; 80061; 84153

== ENCOUNTER → 2023-11-14 15:18 | Outpatient (CLI) | payer MEDICARE, OTHER, SELFPAY ==
--- NOTE | 2023-11-14 15:19 | DI.RAD.S_ITS ---
PROCEDURE: XR KNEE RT 3V INDICATIONS: knee pain TECHNIQUE: 3 views of the knee were acquired. COMPARISON: None. FINDINGS: Bones: No fractures or dislocations. No suspicious bony lesions. Moderate to severe tricompartmental arthritic change most severe medially. Small periarticular osteophytes without erosions. Soft tissues: Mild joint effusion. No suspicious soft tissue calcifications. IMPRESSION: Mild effusion. Moderate to severe tricompartmental arthritic change most severe medially. Dictated by: Ana Raymond M.D. on 11/14/2023 at 17:04 Approved by: Ana Raymond M.D. on 11/14/2023 at 17:05
== END ==
PROVIDERS: PCP Internal Medicine; Referring Provider Nurse Practitioner Family; Visit Provider Nurse Practitioner Family
DX: M25.561 Pain in right knee (principal); M25.461 Effusion, right knee
CPT/HCPCS: 73562

== ENCOUNTER 2023-11-30 05:53 | Emergency (ER) | payer MEDICARE, OTHER, SELFPAY ==
[2023-11-30] VITALS (10 sets, daily range): BP systolic 135–168; BP diastolic 69–87; PULSE 50–61; RESP 10–22; TEMP 36.7; O2SAT 96–98; BMI 38.7
--- NOTE | 2023-11-30 05:55 | PC.NURSE ---
Pt became agitated with this RN when asking the pt to sit fully in the bed. Before an explanation could be for this request,the pt spoke over this RN stating Do you want to argue with me or do you want me to tell you what is wrong? Jesus Gama! This RN waited for the pt to recompose himself as pt states that he is more comfortable sitting on the side of the bed instead of in the bed. Pt later moved both of his legs into the bed on his own.
--- NOTE | 2023-11-30 06:12 | ED_ITS ---
HPI - General Adult <Uriel Vasquez DO - Last Filed: 11/30/23 18:00> General Chief complaint: Neuro Symptoms/Deficit Stated complaint: Balance off, confused, tingling Time Seen by Provider: 11/30/23 05:56 Source: patient Mode of arrival: Ambulatory Limitations: no limitations History of Present Illness HPI narrative: Patient is a 67-year-old male is a states that this morning he woke up at about 0300 hours in the morning to go use the restroom. When he got back to bed stated felt like his balance was off. [place] like confused. Had tingling into his left arm. He comes in the emergency department approximately 3 hours after onset of symptoms. He states the symptoms have improved but not completely resolved. States that when he was in bed after going to the restroom he did feel like he was dizzy. He did not chest pain or shortness of breath. Has never had symptoms like this in the past. He states that he is on the ?verge of feeling nauseous he did take his medication this morning Related Data Home Medications Medication Instructions Recorded Confirmed rosuvastatin 10 mg tablet 10 mg PO ONCE PM 11/14/23 11/26/23 Previous Rx's Medication Instructions Recorded amlodipine 10 mg tablet 10 mg PO DAILY #90 tabs 04/02/23 glyburide 5 mg tablet 5 mg PO BID #180 tabs 04/02/23 lisinopril 20 mg tablet 20 mg PO BID #180 tabs 04/02/23 meloxicam 7.5 mg tablet 7.5 mg PO BID #180 tabs 04/02/23 metformin 1,000 mg tablet See Rx Instructions .Route 04/02/23 .COMPLEX #180 tabs metoprolol tartrate 100 mg tablet 100 mg PO BID #180 tabs 04/02/23 pioglitazone 30 mg tablet 30 mg PO DAILY #90 tabs 04/02/23 pravastatin 20 mg tablet 20 mg PO BEDTIME #90 tabs 09/24/23 tadalafil 5 mg tablet 5 mg PO DAILY PRN sexual activity 09/24/23 #90 tabs meclizine 25 mg tablet 25 mg PO BID-TID PRN dizziness #30 11/30/23 tabs Allergies Allergy/AdvReac Type Severity Reaction Status Date / Time rosuvastatin AdvReac Intermediate myalgias Verified 11/26/23 15:06 Review of Systems <Uriel Vasquez DO - Last Filed: 11/30/23 18:00> Review of Systems ROS Unobtainable: All systems reviewed & are unremarkable except as noted in HPI and below Patient History <Uriel Vasquez DO - Last Filed: 11/30/23 18:00> Medical History Osteoarthritis of right knee Coronary atherosclerosis Degenerative joint disease of cervical spine History of colonic polyps Severe obesity (BMI 35.0-35.9 with comorbidity) Tobacco use disorder 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 Hydrocele, bilateral Shoulder pain (~2014) Hearing loss (~2011) Kidney stones Colon polyp (~1999) Surgical History Anesthesia History of neck surgery Hernia History of cholecystectomy Family History Father Stroke Mother Cancer Brother Colon cancer Social History details: 2020, 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; disabled construction Smoking Status: Current every day smoker Smoking Status: Current every day smoker tobacco type: cigarettes alcohol intake frequency: holidays/special occasions only Substance Use Type: marijuana Exam <Uriel Vasquez DO - Last Filed: 11/30/23 18:00> Initial Vital Signs Initial Vital Signs: Vital Signs Temperature 98.1 F 11/30/23 05:55 Pulse Rate 55 L 11/30/23 05:55 Respiratory Rate 16 11/30/23 05:55 Blood Pressure 167/87 H 11/30/23 05:55 Pulse Oximetry 98 11/30/23 05:55 Oxygen Delivery Method Room Air 11/30/23 05:55 Const General: cooperative, comfortable and No ill appearing HENMT Head: normal to inspection and normocephalic Resp Effort & Inspection: normal respiratory effort Auscultation: clear to auscultation bilaterally Cardio Rate: regular rate Rhythm: regular rhythm GI Inspection: normal to inspection and non-distended Skin General: no rashes or lesions noted Neuro General: patient alert, patient awake, patient oriented x3 and moves all extremities Cognition: normal cognition Speech: speech normal Motor: muscle tone normal throughout Extrem General: normal to inspection and capillary refill normal <Domenica Coleman MD - Last Filed: 11/30/23 08:02> Initial Vital Signs Initial Vital Signs: Vital Signs Temperature 98.1 F 11/30/23 05:55 Pulse Rate 55 L 11/30/23 05:55 Respiratory Rate 16 11/30/23 05:55 Blood Pressure 167/87 H 11/30/23 05:55 Pulse Oximetry 98 11/30/23 05:55 Oxygen Delivery Method Room Air 11/30/23 05:55 Course <Uriel Vasquez DO - Last Filed: 11/30/23 18:00> Orders Ordered: Discontinued Medications Sodium Chloride (Normal Saline 0.9%) 1,000 mls @ 1,000 mls/hr IV BOLUS ONE Stop: 11/30/23 07:11 Last Infusion: 11/30/23 07:13 Dose: Infused Documented By: Admin: 11/30/23 06:18 Dose: 1,000 mls/hr Documented By: SHAINA Vital Signs Vital signs: Vital Signs - 8 hr 11/30/23 05:55 11/30/23 06:02 11/30/23 06:43 Temperature 98.1 F Pulse Rate 55 L 61 54 L Respiratory Rate 16 10 L Blood Pressure 167/87 H Pulse Oximetry 98 96 97 Oxygen Delivery Method Room Air 11/30/23 06:46 11/30/23 06:46 11/30/23 07:00 Temperature Pulse Rate 53 L 50 L Respiratory Rate 16 15 Blood Pressure 143/75 H Pulse Oximetry 98 97 Oxygen Delivery Method 11/30/23 07:00 Temperature Pulse Rate Respiratory Rate Blood Pressure 135/76 Pulse Oximetry Oxygen Delivery Method <Domenica Coleman MD - Last Filed: 11/30/23 08:02> Orders Ordered: Discontinued Medications Sodium Chloride (Normal Saline 0.9%) 1,000 mls @ 1,000 mls/hr IV BOLUS ONE Stop: 11/30/23 07:11 Last Infusion: 11/30/23 07:13 Dose: Infused Documented By: Admin: 11/30/23 06:18 Dose: 1,000 mls/hr Documented By: SHAINA Vital Signs Vital signs: Vital Signs - 8 hr 11/30/23 05:55 11/30/23 06:02 11/30/23 06:43 Temperature 98.1 F Pulse Rate 55 L 61 54 L Respiratory Rate 16 10 L Blood Pressure 167/87 H Pulse Oximetry 98 96 97 Oxygen Delivery Method Room Air 11/30/23 06:46 11/30/23 06:46 11/30/23 07:00 Temperature Pulse Rate 53 L 50 L Respiratory Rate 16 15 Blood Pressure 143/75 H Pulse Oximetry 98 97 Oxygen Delivery Method 11/30/23 07:00 Temperature Pulse Rate Respiratory Rate Blood Pressure 135/76 Pulse Oximetry Oxygen Delivery Method Medical Decision Making <Uriel Vasquez DO - Last Filed: 11/30/23 18:00> Medical Records Medical records reviewed: Yes I reviewed the patient's medical records. Lab Data Lab results reviewed: Yes I reviewed the patient's lab results. 11/30/23 06:04 11/30/23 06:04 Labs: Lab Results 11/30/23 Range/Units 06:04 WBC 9.2 (4.5-11.0) X10^3/uL RBC 5.08 (4.5-5.9) X10^6/uL Hgb 15.1 (13.5-17.5) g/dL Hct 44.7 (41-53) % MCV 87.9 (80-100) fL MCH 29.6 (26-34) PG MCHC 33.7 (30-36) % RDW 14.5 (11.6-14.8) % Plt Count 175 (150-400) X10^3/uL Neut % (Auto) 62.9 (50-75) % Lymph % (Auto) 27.8 (25-40) % [place] % (Auto) 7.7 (3-14) % Eos % (Auto) 1.2 L (2-4) % Baso % (Auto) 0.4 (0-2) % Neut # (Auto) 5800 (7319-8999) /uL Lymph # (Auto) 2500 (4435-8538) /uL [place] # (Auto) 700 (0-900) /uL Eos # (Auto) 100 (0-450) /uL Baso # (Auto) 0 (0-100) /uL Sodium 137 (137-145) mmol/L Potassium 4.7 (3.4-5.1) mmol/L Chloride 106 (98-107) mmol/L Carbon Dioxide 25 (22-32) mmol/L BUN 28 H (9-20) mg/dL Creatinine 0.95 (0.66-1.25) mg/dL Estimated GFR > 60 (>60) mL/min BUN/Creatinine Ratio 29.5 H (6-22) Glucose 173 H (80-110) mg/dL Calcium 9.4 (8.4-10.2) mg/dL Magnesium 1.6 (1.6-2.3) mg/dL Total Bilirubin 0.6 (0.2-1.3) mg/dL AST 24 (17-59) IU/L ALT 26 (<50) IU/L Alkaline Phosphatase 50 (38-126) U/L Total Creatine Kinase 141 (55-170) U/L Troponin I < 0.012 (0.01-0.034) ng/mL Total Protein 7.1 (6.3-8.2) g/dL Albumin 4.6 (3.5-5.0) g/dL Globulin 2.5 (1.7-4.1) g/dL Albumin/Globulin Ratio 1.8 (1.0-2.8) Lipase 80 (23-300) U/L Ethyl Alcohol < 10 ( - 10) mg/dL Point of Care Testing Glucose POC 173 Point of care testing: Point of Care Testing Glucose POC 173 ECG Data Attestation: I personally reviewed and interpreted this ECG as follows: Interpretation: Sinus bradycardia Ventricular rate of 56 Left axis deviation Normal QRS No ST T wave changes <Domenica Coleman MD - Last Filed: 11/30/23 08:02> Lab Data Labs: Lab Results 11/30/23 Range/Units 06:04 WBC 9.2 (4.5-11.0) X10^3/uL RBC 5.08 (4.5-5.9) X10^6/uL Hgb 15.1 (13.5-17.5) g/dL Hct 44.7 (41-53) % MCV 87.9 (80-100) fL MCH 29.6 (26-34) PG MCHC 33.7 (30-36) % RDW 14.5 (11.6-14.8) % Plt Count 175 (150-400) X10^3/uL Neut % (Auto) 62.9 (50-75) % Lymph % (Auto) 27.8 (25-40) % [place] % (Auto) 7.7 (3-14) % Eos % (Auto) 1.2 L (2-4) % Baso % (Auto) 0.4 (0-2) % Neut # (Auto) 5800 (7985-4494) /uL Lymph # (Auto) 2500 (9953-2339) /uL [place] # (Auto) 700 (0-900) /uL Eos # (Auto) 100 (0-450) /uL Baso # (Auto) 0 (0-100) /uL Sodium 137 (137-145) mmol/L Potassium 4.7 (3.4-5.1) mmol/L Chloride 106 (98-107) mmol/L Carbon Dioxide 25 (22-32) mmol/L BUN 28 H (9-20) mg/dL Creatinine 0.95 (0.66-1.25) mg/dL Estimated GFR > 60 (>60) mL/min BUN/Creatinine Ratio 29.5 H (6-22) Glucose 173 H (80-110) mg/dL Calcium 9.4 (8.4-10.2) mg/dL Magnesium 1.6 (1.6-2.3) mg/dL Total Bilirubin 0.6 (0.2-1.3) mg/dL AST 24 (17-59) IU/L ALT 26 (<50) IU/L Alkaline Phosphatase 50 (38-126) U/L Total Creatine Kinase 141 (55-170) U/L Troponin I < 0.012 (0.01-0.034) ng/mL Total Protein 7.1 (6.3-8.2) g/dL Albumin 4.6 (3.5-5.0) g/dL Globulin 2.5 (1.7-4.1) g/dL Albumin/Globulin Ratio 1.8 (1.0-2.8) Lipase 80 (23-300) U/L Ethyl Alcohol < 10 ( - 10) mg/dL Point of Care Testing Glucose POC 173 Point of care testing: Point of Care Testing Glucose POC 173 [facility] Narrative Additional Information: Dr. Coleman -ino of patient is signed out to me by nighttime doctor at 7:00 a.m.. Independent review of patient and chart performed by myself. Labs and imaging unremarkable including head CT scan. Physical exam is unremarkable, no fluid behind either TM, patient's symptoms seemed to have resolved while being in the emergency department. Patient counseled on all lab and imaging findings. Recommended close PCP follow up, and recommended coming back to the emergency department if symptoms recur. Discharge Plan Departure Patient Disposition: Home Clinical Impression: Vertigo Instructions: DI for Vertigo Activity Restrictions/Additional Instructions: Your laboratory work and CT imaging today were normal. I did not notice any abnormalities on my exam of you today. I would recommend following up with your primary care doctor following this ER visit. If you have another incidents of vertigo I recommend coming back to the emergency department for repeat evaluation. And anti vertigo tablet has been sent to the [facility] in [place]. You may try this medication if you feel dizzy again. Prescriptions: New meclizine 25 mg tablet 25 mg PO BID-TID PRN (Reason: dizziness) Qty: 30 0RF No Action rosuvastatin 10 mg tablet 10 mg PO ONCE PM amlodipine 10 mg tablet 10 mg PO DAILY Qty: 90 3RF glyburide 5 mg tablet 5 mg PO BID Qty: 180 3RF lisinopril 20 mg tablet 20 mg PO BID Qty: 180 3RF metformin 1,000 mg tablet See Rx Instructions .ROUTE .COMPLEX Qty: 180 3RF Dose Instruction: TAKE 1 TABLET BY MOUTH TWICE DAILY WITH MEALS Rx Instructions: TAKE 1 TABLET BY MOUTH TWICE DAILY WITH MEALS meloxicam 7.5 mg tablet 7.5 mg PO BID Qty: 180 3RF metoprolol tartrate 100 mg tablet 100 mg PO BID Qty: 180 3RF pioglitazone 30 mg tablet 30 mg PO DAILY Qty: 90 3RF pravastatin 20 mg tablet 20 mg PO BEDTIME Qty: 90 3RF tadalafil 5 mg tablet 5 mg PO DAILY PRN (Reason: sexual activity) Qty: 90 3RF Referrals: Blu Romero MD [Primary Care Provider] - Stand Alone Forms: Patient Portal/API
--- NOTE | 2023-11-30 06:13 | EKG_ITS ---
[place] [id number] [place] [id number] Test Date: 2023-11-30 Pat Name: Jian Gutierrez Department: [facility] Room: Gender: Male [employer] Representative: VAZQUEZ : 1955 Requested By: Order Number: [id number] Reading MD: Mak Callaway Measurements Intervals [place] Rate: 56 P: 20 CT: 186 QRS: -36 QRSD: 88 T: 66 QT: 414 QTc: 399 Interpretive Statements Sinus bradycardia Left axis deviation Electronically Signed On 12-03-2023 8:41:11 PDT by Mak Callaway
--- NOTE | 2023-11-30 06:14 | DI.CT.S_ITS ---
PROCEDURE: CT HEAD/BRAIN WO CON INDICATIONS: Dizziness, headache, arm tingling TECHNIQUE: Noncontrast 4.5 mm thick angled axial sections acquired from the foramen magnum to the vertex, with coronal and sagittal reformats. For radiation dose reduction, the following was used: automated exposure control, adjustment of mA and/or kV according to patient size. COMPARISON: [facility], CT, CT HEAD/BRAIN WO CON, 07/12/2022, 19:27. FINDINGS: Image quality: Diagnostic. CSF spaces: Basal cisterns are patent. No extra-axial fluid collections. The ventricles are symmetric in size and shape. Brain: No intracranial bleeds or masses. There is cerebral volume loss for age, with resultant ventricular and sulcal prominence. There are periventricular and deep white matter chronic small vessel ischemic changes. There is intracranial internal carotid artery atherosclerosis. Skull and face: Calvarium and visualized facial bones appear intact, without suspicious lesions. Sinuses: Mild patchy ethmoid opacification. IMPRESSION: 1. No acute intracranial pathology. 2. Patchy ethmoid disease. Comment: Final report is concordant with preliminary interpretation provided by [facility]. Dictated by: Murali Preciado M.D. on 11/30/2023 at 7:35 Approved by: Murali Preciado M.D. on 11/30/2023 at 7:37
[2023-11-30] MEDS: SODIUM CHLORIDE 0.9% 1,000 ML 1000 ML IV (06:18)
[2023-11-30 06:27] LABS: Add Manual Diff / Slide Review NO; Basophils Absolute Auto 0 /uL (0-100); Basophils Percent Auto 0.4 % (0-2); Eosinophils Absolute Auto 100 /uL (0-450); Eosinophils Percent Auto 1.2 % (2-4); Hematocrit 44.7 % (41-53); Hemoglobin 15.1 g/dL (13.5-17.5); Lymphocytes Absolute Auto 2500 /uL (1100-4500); Lymphocytes Percent Auto 27.8 % (25-40); Mean Corpuscular HGB Conc 33.7 % (30-36); Mean Corpuscular Hemoglobin 29.6 PG (26-34); Mean Corpuscular Volume 87.9 fL (80-100); Monocytes Absolute Auto 700 /uL (0-900); Monocytes Percent Auto 7.7 % (3-14); Neutrophils Absolute Auto 5800 /uL (1500-7000); Neutrophils Percent Auto 62.9 % (50-75); Platelet Count 175 X10^3/uL (150-400); Red Blood Cell Count 5.08 X10^6/uL (4.5-5.9); Red Cell Distribution Width 14.5 % (11.6-14.8); White Blood Cell Count 9.2 X10^3/uL (4.5-11.0)
[2023-11-30 06:38] LABS: Alanine Aminotransferase 26 IU/L (<50); Albumin 4.6 g/dL (3.5-5.0); Albumin Globulin Ratio 1.8 (1.0-2.8); Alkaline Phosphatase 50 U/L (38-126); Aspartate Aminotransferase 24 IU/L (17-59); BUN Creatinine Ratio 29.5 (6-22); Bilirubin Total 0.6 mg/dL (0.2-1.3); Blood Urea Nitrogen 28 mg/dL (9-20); Calcium 9.4 mg/dL (8.4-10.2); Carbon Dioxide 25 mmol/L (22-32); Chloride 106 mmol/L (98-107); Creatine Kinase 141 U/L (55-170); Estimated Glomerular Filt Rate > 60 mL/min (>60); Ethanol (ETOH) < 10 mg/dL; Globulin 2.5 g/dL (1.7-4.1); Glucose 173 mg/dL (80-110); HEMOLYSIS < 15 (0-50); Lipase 80 U/L (23-300); Magnesium 1.6 mg/dL (1.6-2.3); Potassium 4.7 mmol/L (3.4-5.1); Sodium 137 mmol/L (137-145); Total Protein 7.1 g/dL (6.3-8.2)
[2023-11-30 06:49] LABS: Troponin I < 0.012 ng/mL (0.01-0.034)
--- NOTE | 2023-11-30 07:15 | PC.NURSE ---
Pt given education on swallow screen and its purpose due to his chief complaint. Pt appears to understand the teachings, still appearing agitated w this RN.
== END 2023-11-30 08:20 | disposition home or self-care (01) ==
PROVIDERS: Emergency Medicine; Emergency Provider Emergency Medicine; PCP Internal Medicine
DX: R42 Dizziness and giddiness (principal); R00.1 Bradycardia, unspecified; R20.2 Paresthesia of skin; Z79.899 Other long term (current) drug therapy
CPT/HCPCS: 36415; 70450; 80053; 80320; 82550; 82962; 83690; 83735; 84484; 85025; 93005; 99284

== ENCOUNTER → 2024-09-26 07:21 | Outpatient (CLI) | payer MEDICARE, OTHER, SELFPAY ==
[2024-09-26 08:09] LABS: Creatinine Urine Random 102.18 mg/dL
[2024-09-26 08:19] LABS: Microalbumin Urine Random < 0.6 mg/dL (0-1.6)
[2024-09-26 08:32] LABS: Hemoglobin A1C% w Est Avg Glu 6.6 % (4.0-6.0)
[2024-09-26 09:01] LABS: HEMOLYSIS < 15 (0-50)
[2024-09-26 09:05] LABS: Aspartate Aminotransferase 30 IU/L (17-59); BUN Creatinine Ratio 22.5 (6-22); Blood Urea Nitrogen 25 mg/dL (9-20); Calcium 9.3 mg/dL (8.4-10.2); Carbon Dioxide 26 mmol/L (22-32); Chloride 104 mmol/L (98-107); Cholesterol 158 mg/dL (140-199); Estimated Glomerular Filt Rate > 60 mL/min (>60); Glucose 79 mg/dL (70-99); HDL Cholesterol 28 mg/dL (40-60); LDL Cholesterol Calculated 67 mg/dL (<100); Sodium 137 mmol/L (137-145); Triglycerides 313 mg/dL (35-150)
[2024-09-26 09:11] LABS: Potassium 4.5 mmol/L (3.4-5.1)
[2024-09-26 09:35] LABS: Prostate Specific Antigen 3.64 ng/mL (0.10-4.00)
== END ==
PROVIDERS: PCP Internal Medicine; Referring Provider Internal Medicine; Visit Provider Internal Medicine
DX: E11.69 Type 2 diabetes mellitus with other specified complication (principal); N40.1 Benign prostatic hyperplasia with lower urinary tract symptoms; N13.8 Other obstructive and reflux uropathy; E78.1 Pure hyperglyceridemia; E78.5 Hyperlipidemia, unspecified
CPT/HCPCS: 36415; 80048; 80061; 82043; 82570; 83036; 84153; 84450

== ENCOUNTER → 2024-10-13 07:52 | Outpatient (CLI) | payer MEDICARE, OTHER, SELFPAY ==
--- NOTE | 2024-10-13 07:53 | DI.CT.S_ITS ---
PROCEDURE: CT LUNG LOW DOSE SCREENING INDICATIONS: chronic tobacco use TECHNIQUE: Noncontrast 2.0-2.5 mm thick sections acquired from the pulmonary apices to the posterior costophrenic angles. 7 mm thick axial MIP, and 5 mm coronal and sagittal reformats were then acquired. For radiation dose reduction, the following was used: automated exposure control, adjustment of mA and/or kV according to patient size. COMPARISON: [facility], CT, CT LUNG LOW DOSE SCREENING, 09/25/2023, 14:10. FINDINGS: Image quality: Diagnostic. 3 mm right perihilar nodule (series 3, image 160) unchanged. 5 mm right middle lobe anterior nodule (series 3, image 184) unchanged. No new nodules. Mild symmetric anterior chest wall 2.4 cm soft tissue attenuation mild gynecomastia. Moderate calcifications of the coronary arteries three-vessel disease predominantly left anterior descending mildly progressed. Mild nonspecific wall thickening of the stomach, some of which may be artifact from partial nondistention although gastritis or other process could be considered. Degenerative changes of the thoracic spine with multilevel anterior bridging osteophytes suggest diffuse idiopathic skeletal hyperostosis. Surgical clips status post cholecystectomy. Status post left total shoulder arthroplasty with associated beam hardening artifacts partially limits the exam. No pneumothorax, no pleural effusion, no pericardial effusion, no lobar consolidation. Lower Neck: No enlarged lymph nodes. Thyroid: No thyroid nodules which require sonographic follow up, per consensus guidelines. Heart: Heart size is normal. Thoracic Vessels: The aorta and pulmonary arteries demonstrate normal size. Mediastinum and [place]: No enlarged lymph nodes. Upper Abdomen: Visualized upper abdomen solid organs and bowel loops appear normal. IMPRESSION: No suspicious pulmonary nodules. LUNG-RADS 2; continued annual screening, if eligible. Clinically Significant Non-pulmonary Findings: Vascular calcifications mildly progressed. Dictated by: Logan Matthew M.D. on 10/13/2024 at 13:13 Approved by: Logan Matthew M.D. on 10/13/2024 at 13:27
== END ==
PROVIDERS: PCP Internal Medicine; Referring Provider Internal Medicine; Visit Provider Internal Medicine
DX: Z12.2 Encounter for screening for malignant neoplasm of respiratory organs (principal); F17.210 Nicotine dependence, cigarettes, uncomplicated; R91.8 Other nonspecific abnormal finding of lung field; I25.10 Atherosclerotic heart disease of native coronary artery without angina pectoris; N62 Hypertrophy of breast; M47.814 Spondylosis without myelopathy or radiculopathy, thoracic region; Z96.652 Presence of left artificial knee joint
CPT/HCPCS: 71271

== ENCOUNTER → 2025-03-10 08:58 | Outpatient (CLI) | payer MEDICARE, OTHER, SELFPAY ==
[2025-03-10 10:22] LABS: Alanine Aminotransferase 23 IU/L (<50); Albumin 4.5 g/dL (3.5-5.0); Albumin Globulin Ratio 1.7 (1.0-2.8); Alkaline Phosphatase 45 U/L (38-126); Blood Urea Nitrogen 22 mg/dL (9-20); Calcium 9.6 mg/dL (8.4-10.2); Carbon Dioxide 22 mmol/L (22-32); Chloride 106 mmol/L (98-107); Estimated Glomerular Filt Rate > 60 mL/min (>60); Globulin 2.6 g/dL (1.7-4.1); Glucose 81 mg/dL (70-99); HEMOLYSIS < 15 (0-50); Potassium 4.5 mmol/L (3.4-5.1); Sodium 139 mmol/L (137-145); Total Protein 7.1 g/dL (6.3-8.2)
[2025-03-10 10:32] LABS: Hemoglobin A1C% w Est Avg Glu 6.7 % (4.0-6.0)
== END ==
PROVIDERS: PCP Internal Medicine; Referring Provider Internal Medicine; Visit Provider Internal Medicine
DX: E11.69 Type 2 diabetes mellitus with other specified complication (principal); E78.5 Hyperlipidemia, unspecified; I25.10 Atherosclerotic heart disease of native coronary artery without angina pectoris
CPT/HCPCS: 36415; 80053; 83036